=== PATIENT | male | born 1940 | race Caucasian/White ===

== ENCOUNTER 2017-01-30 14:20 | Inpatient (IN) | payer MEDICARE, OTHER ==
[~2017-01-30] VITALS: Ht 182.9 cm; Wt 90.7 kg
[2017-01-30 14:30] VITALS: BP 119/71
--- NOTE | 2017-01-30 14:45 | NUR ---
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 ER MD MADE AWARE OF PT STATUS.
[2017-01-30] MEDS ORDERED: ZAR2.5 PO (14:49)
[2017-01-30] MEDS ORDERED: PUL.5N INH (14:49)
[2017-01-30] MEDS ORDERED: FURO-571 PO (14:49)
[2017-01-30] MEDS ORDERED: SITA50TA3 PO (14:49)
[2017-01-30] MEDS ORDERED: MAGN400S60 PO (14:49)
[2017-01-30] MEDS ORDERED: ALBU0.0912 IH (14:49)
[2017-01-30] MEDS ORDERED: ACET-2619 PO (14:49)
[2017-01-30] MEDS ORDERED: LANTUS SUBQ (14:49)
[2017-01-30] MEDS ORDERED: ISOS10TA9 PO (14:49)
[2017-01-30] MEDS ORDERED: FERR-193 PO (14:49)
[2017-01-30] MEDS ORDERED: DIA250 PO (14:49)
[2017-01-30] MEDS ORDERED: CARV3.12 PO (14:49)
[2017-01-30] MEDS ORDERED: NA P135N19 RC (14:49)
[2017-01-30] MEDS ORDERED: SPIR25TA PO (14:49)
[2017-01-30] MEDS ORDERED: LOV30I SUBQ (14:49)
[2017-01-30] MEDS ORDERED: BISA-213 RC (14:49)
[2017-01-30] MEDS ORDERED: ASPI81EC97 PO (14:49)
[2017-01-30] MEDS ORDERED: DOCU-67 PO (14:49)
[2017-01-30] MEDS ORDERED: MONT10TA35 PO (14:49)
[2017-01-30] MEDS ORDERED: METF500T PO (14:49)
[2017-01-30 15:04] LABS: BASOPHILS # (AUTO) 0.1 K/uL (0.00-0.22); BASOPHILS % (AUTO) 0.7 % (0.0-2.0); EOSINOPHILS # (AUTO) 0.3 K/uL (0-0.4); EOSINOPHILS % (AUTO) 2.8 % (0.0-4.0); HEMATOCRIT 39.8 % (36-52); HEMOGLOBIN 13.2 g/dL (12.0-18.0); LYMPHOCYTES # (AUTO) 0.5 K/uL (2.0-11.5); LYMPHOCYTES % (AUTO) 5.3 % (20.5-51.1); MEAN CORPUSCULAR HEMOGLOBIN 29 pg (27-31); MEAN CORPUSCULAR HGB CONC 33 g/dL (33-37); MEAN CORPUSCULAR VOLUME 88 fL (80-94); MONOCYTES # (AUTO) 1.1 K/uL (0.8-1.0); MONOCYTES % (AUTO) 10.9 % (1.7-9.3); NEUTROPHILS # (AUTO) 8.4 K/uL (1.8-7.7); NEUTROPHILS % (AUTO) 80.3 % (42.2-75.2); PLATELET COUNT (AUTO) 206 K/uL (140-450); RED CELL DISTRIBUTION WIDTH 13.5 % (11.6-13.7); WHITE BLOOD COUNT (AUTO) 10.4 K/uL (4.8-10.8)
[2017-01-30 15:27] LABS: ALANINE AMINOTRANSFERASE 23 U/L (12-78); ALBUMIN 4.1 g/dL (3.4-5.0); ALKALINE PHOSPHATASE 74 U/L (46-116); ANION GAP 14.7 (8-16); ASPARTATE AMINOTRANSFERASE 26 U/L (15-37); CALCIUM 8.5 mg/dL (8.5-10.1); CARBON DIOXIDE 31.8 mmol/L (21-32); CHLORIDE 83 mmol/L (98-107); CREATININE 3.7 mg/dL (0.6-1.3); GLUCOSE 244 mg/dL (74-106); INR 1.1 (0.8-1.2); PARTIAL THROMBOPLASTIN TIME 23.1 secs (22-35.6); PROTHROMBIN TIME 10.6 secs (10.8-13.4); SODIUM SERUM 127 mmol/L (136-145); TOTAL BILIRUBIN 0.5 mg/dL (0.0-1.0); TOTAL PROTEIN, SERUM 8.2 g/dL (6.4-8.2)
--- NOTE | 2017-01-30 15:30 | NUR ---
CRITICAL VALUES RECIEVE FROM LAB K 2.5, BUN 134, CR 3.7 DR SAL NOTIFIED AWAITING ORDERS
[2017-01-30 15:31] LABS: POTASSIUM 2.5 mmol/L (3.5-5.1); UREA NITROGEN, BLOOD 134 mg/dL (7-18)
--- NOTE | 2017-01-30 15:45 | NUR ---
CRITIVAL VALUES RECIEVE FROM LAB TROPONIN 0.192 DR SAL NOTIFIED AWAITING ORDERS
--- NOTE | 2017-01-30 16:30 | NUR ---
DR SAL ASSESSING THE PT AT BEDSIDE
[2017-01-30] MEDS ORDERED: NACL 0.9% 1,000 ML IV SCH (17:08)
[2017-01-30] MEDS ORDERED: ACETAMINOPHEN 325 MG TAB PO PRN (17:10)
[2017-01-30] MEDS ORDERED: HYDROcodone/APAP 5/325 MG 1 TAB TAB PO PRN (17:10)
[2017-01-30] MEDS ORDERED: ONDANSETRON 4 MG/2 ML VIAL IVP PRN (17:10)
--- NOTE | 2017-01-30 17:10 | NUR ---
Patient will be admitted to care of DR VIRAMONTES. Admited to TELE. Will go to room 123A. Belongings list completed. Report to GWYN BILLINGS.
[2017-01-30 17:30] VITALS: BP 134/94
--- NOTE | 2017-01-30 17:30 | NUR ---
RECEIVED REPORT FROM SKIDDER DRIVER. PT TRANSFERRED ONTO UNIT VIA GURNEY. NO S/S OF ACUTE CARDIAC/RESPIRATORY DISTRESS OR DISCOMFORT. PT IN STABLE CONDITION. SAFETY MEASURES IN PLACE, CALL LIGHT WITHIN REACH. WILL INITIATE PLAN OF CARE AND CONTINUE TO MONITOR.
[2017-01-30 17:59] LABS: FREE T4 (FREE THYROXINE) 1.32 ng/dL (0.76-1.46); THYROID STIMULATING HORMONE 2.48 uIU/mL (0.34-3.76)
--- NOTE | 2017-01-30 19:30 | NUR ---
RECEIVED REPORT FROM DAY NURSEMANUELITO. PATIENT RESTING IN BED, WATCHING TELEVISION. NO RESPIRATORY DISTRESS, SOB, OR DISCOMFORT. INITIAL ASSESSMENT AND BODY CHECK DONE. PATIENT IS AOX4, SKIN IS INTACT, IV ACCESS TO RIGHT FOREARM 22G, PATENT. PATIENT HAS HEALED WOUND TO LEFT FOREARM WITH [address] DISCUSSED PLAN OF CARE, MEDICATION REGIMENT, AND PAIN MANAGEMENT WITH PATIENT. PATIENT VERBALIZED UNDERSTANDING. PLACED PATIENT ON SAFETY/FALL PRECAUTIONS. CALL LIGHT LEFT WITHIN REACH, WILL CONTINUE TO MONITOR.
[2017-01-30] MEDS ORDERED: POTASSIUM CHLORIDE 10 MEQ TABER PO SCH (19:35)
[2017-01-30] MEDS ORDERED: ALBUTEROL SULFATE/IPRATROPIU 3 ML SOL IH PRN (19:40)
[2017-01-30] MEDS ORDERED: MAGNESIUM HYDROXIDE 2400 MG/30 ML UDC PO PRN (19:40)
[2017-01-30] MEDS ORDERED: SODIUM PHOSPHATE 118 ML ENEM RC PRN (19:40)
[2017-01-30] MEDS ORDERED: BISACODYL 10 MG SUPP RC PRN (19:40)
[2017-01-30 20:00] VITALS: BP 140/84
[2017-01-30] MEDS: SIMVASTATIN 10 MG TAB PO SCH (20:22)
[2017-01-30] MEDS: DOCUSATE SODIUM 100 MG GELCAP PO SCH (20:22)
--- NOTE | 2017-01-30 20:22 | NUR ---
EXPLAINED TO PATIENT OF MD ORDER INSERTION OF F/C TO CLOSELY MONITOR I&O'S. PATIENT REFUSED, STATES ABILITY TO URINATE FINE. EXPLAINED RISKS/BENEFITS/IMPORTANCE. PATIENT VERBALIZED UNDERSTANDING. STILL REFUSES. NO RESPIRATORY DISTRESS, SOB, OR DISCOMFORT. CALL LIGHT LEFT WITHIN REACH, WILL CONTINUE TO MONITOR.
[2017-01-30] MEDS: CARVEDILOL 3.125 MG TAB PO SCH (20:25)
--- NOTE | 2017-01-30 20:32 | NUR ---
PT REFUSED HHN TX AND SAID NO WAY I WILL TAKE IT. RN ROSY AT BEDSIDE. HHN SETUP AT BEDSIDE. NO SOB/DISTRES NOTED AT THIS TIME.
[2017-01-30] MEDS ORDERED: metFORMIN 500 MG TAB PO SCH (21:00)
--- NOTE | 2017-01-30 22:15 | NUR ---
FIELD TECHNICIAN AT PT BEDSIDE TO FIX LEADS, PT TOOK OFF LEADS, STATED, " THEY BUG ME AND I CAN'T MOVE OR SLEEP WITH IT ON." EXPLAINED TO PT THE IMPORTANCE OF HAVING BENCH ASSEMBLER BATTERY ON, VERBALIZED UNDERSTANDING, AWARE OF RISKS. PT STATED, " YOU CAN PUT IT BACK ON ME IN THE MORNING." PT IS A/O X3, NO CONFUSION NOTED. WILL NOTIFY PATIENT'S NURSE.
--- NOTE | 2017-01-30 22:31 | NUR ---
PATIENT LAYING IN BED, WATCHING TELEVISION. NO RESPIRATORY DISTRESS, SOB, OR DISCOMFORT. CALL LIGHT LEFT WITHIN REACH, WILL CONTINUE TO MONITOR.
[2017-01-30 23:20] LABS: APPEARANCE,URINE CLEAR (CLEAR); BILIRUBIN,URINE NEGATIVE (NEGATIVE); BLOOD, URINE TRACE-I (NEGATIVE); COLOR,URINE YELLOW (YELLOW); LEUKOCYTE ESTERASE ,URINE NEGATIVE (NEGATIVE); NITRITE, URINE NEGATIVE (NEGATIVE); PH,URINE 5.5 (5.0-9.0); PROTEIN,URINE 2+ (NEGATIVE); UGLUCOSE NEGATIVE (NEGATIVE); UROBILINOGEN,URINE 0.2 EU/dL (0.2 - 1)
[2017-01-30 23:53] LABS: BACTERIA,URINE OCCASSIONAL /HPF (None Seen); RBC,URINE 0-5 (RARE) /HPF (0-5); SQUAMOUS EPITHELIAL CELL,UR 0-3 (FEW) /LPF (0-3 (FEW)); WBC,URINE 0-5 (RARE) /HPF (0-5); YEAST,URINE Few /HPF (None Seen)
[2017-01-31] VITALS: BP 101/61
--- NOTE | 2017-01-31 00:47 | NUR ---
PATIENT IN BED, SLEEPING. NO RESPIRATORY DISTRESS, SOB, OR DISCOMFORT. CALL LIGHT LEFT WITHIN REACH, WILL CONTINUE TO MONITOR.
--- NOTE | 2017-01-31 03:15 | NUR ---
PATIENT ASLEEP. NO RESPIRATORY DISTRESS, SOB, OR DISCOMFORT. CALL LIGHT LEFT WITHIN REACH, WILL CONTINUE TO MONITOR.
[2017-01-31 04:00] VITALS: BP 111/52
--- NOTE | 2017-01-31 06:03 | NUR ---
PATIENT SLEEPING. NO RESPIRATORY DISTRESS, SOB, OR DISCOMFORT. CALL LIGHT LEFT WITHIN REACH, WILL CONTINUE TO MONITOR.
--- NOTE | 2017-01-31 07:08 | NUR ---
REPORT GIVEN TO DAY NURSE, MANUELITO. PATIENT RESTING IN BED, WATCHING TELEVISION, STABLE. NO RESPIRATORY DISTRESS, SOB, OR DISCOMFORT. ALL NEEDS ATTENDED TO DURING SHIFT, CALL LIGHT LEFT WITHIN REACH.
--- NOTE | 2017-01-31 07:10 | NUR ---
RECEIVED REPORT FROM HEAD HOST/HOSTESS RN. PT WATCHING TV. PT HAS NO S/S OF ACUTE CARDIAC/RESPIRATORY DISTRESS. SAFETY MEASURES IN PLACE, CALL LIGHT WITHIN REACH. WILL CONTINUE PLAN OF CARE AND CONTINUE TO MONITOR.
[2017-01-31 07:22] LABS: BASOPHILS # (AUTO) 0.1 K/uL (0.00-0.22); BASOPHILS % (AUTO) 0.7 % (0.0-2.0); EOSINOPHILS # (AUTO) 0.5 K/uL (0-0.4); EOSINOPHILS % (AUTO) 4.8 % (0.0-4.0); HEMATOCRIT 39.3 % (36-52); HEMOGLOBIN 13.2 g/dL (12.0-18.0); LYMPHOCYTES # (AUTO) 0.9 K/uL (2.0-11.5); LYMPHOCYTES % (AUTO) 8.4 % (20.5-51.1); MEAN CORPUSCULAR HEMOGLOBIN 29 pg (27-31); MEAN CORPUSCULAR HGB CONC 34 g/dL (33-37); MEAN CORPUSCULAR VOLUME 87 fL (80-94); MONOCYTES % (AUTO) 8.9 % (1.7-9.3); NEUTROPHILS # (AUTO) 8.4 K/uL (1.8-7.7); NEUTROPHILS % (AUTO) 77.2 % (42.2-75.2); PLATELET COUNT (AUTO) 199 K/uL (140-450); RED CELL DISTRIBUTION WIDTH 13.3 % (11.6-13.7); WHITE BLOOD COUNT (AUTO) 10.9 K/uL (4.8-10.8)
[2017-01-31] MEDS ORDERED: DEXTROSE 50% 50 ML SYR IVP PRN ×2 (07:35→12:00)
[2017-01-31 07:37] LABS: ANION GAP 14.9 (8-16); CALCIUM 8.3 mg/dL (8.5-10.1); CARBON DIOXIDE 29.9 mmol/L (21-32); CHLORIDE 87 mmol/L (98-107); CREATININE 3.4 mg/dL (0.6-1.3); GLUCOSE 230 mg/dL (74-106); SODIUM SERUM 129 mmol/L (136-145)
[2017-01-31 07:39] LABS: CHOL/HDL RATIO 5.1 (1-4.5); MAGNESIUM 2.5 mg/dL (1.8-2.4); PHOSPHORUS 5.1 mg/dL (2.5-4.9)
[2017-01-31 08:00] VITALS: BP 92/50
[2017-01-31 08:15] LABS: POTASSIUM 2.8 mmol/L (3.5-5.1); UREA NITROGEN, BLOOD 130 mg/dL (7-18)
[2017-01-31] MEDS: FERROUS SULFATE 325 MG TABEC PO SCH (08:57)
[2017-01-31] MEDS: CARVEDILOL 3.125 MG TAB PO SCH ×2 (08:57→21:31)
[2017-01-31] MEDS: DOCUSATE SODIUM 100 MG GELCAP PO SCH ×2 (08:58→21:31)
[2017-01-31] MEDS: MONTELUKAST SODIUM 10 MG TAB PO SCH (08:58)
[2017-01-31] MEDS ORDERED: FLUCONAZOLE 200 MG/NS PREMIX 100 ML IV SCH (09:00)
[2017-01-31] MEDS: INSULIN DETEMIR 100 UNITS/ML 10 ML VIAL SUBQ SCH (09:34)
--- NOTE | 2017-01-31 10:00 | NUR ---
PT AWAKE, WATCHING TV. PT TOLERATED AM MEDS WELL. NO S/S OF ACUTE DISTRESS OR DISCOMFORT.
--- NOTE | 2017-01-31 11:07 | NUR ---
CM NOTE INITIAL REVIEW FAXED TO [facility] (FAX# [phone]) AND [facility] (FAX# [phone], ATTN: ANDRÉS #[phone] [id number])
[2017-01-31] MEDS ORDERED: BLOOD GLUCOSE MONITORING 1 DEV DEV FS SCH (11:30)
[2017-01-31 12:00] VITALS: BP 130/61
[2017-01-31] MEDS ORDERED: POTASSIUM CHLORIDE 10 MEQ TABER PO SCH (12:00)
[2017-01-31] MEDS: INSULIN LISPRO SLIDING SCALE 100 UNITS/ML VIAL SUBQ PRN ×2 (12:17→21:32)
--- NOTE | 2017-01-31 13:00 | NUR ---
PT BEING SEEN BY DR BARBOUR.
[2017-01-31] MEDS: ALBUTEROL SULFATE/IPRATROPIU 3 ML SOL IH SCH ×2 (13:35→19:06)
[2017-01-31 16:00] VITALS: BP 113/67
[2017-01-31] MEDS: BLOOD GLUCOSE MONITORING 1 DEV DEV FS SCH ×2 (16:34→21:31)
--- NOTE | 2017-01-31 16:40 | NUR ---
PT IS AWAKE, RAZORING HIS FACIAL HAIR. PT HAS NO S/S OF ACUTE DISTRESS OR DISCOMFORT. CALL LIGHT WITHIN REACH, WILL CONTINUE TO MONITOR.
[2017-01-31 17:32] LABS: ANION GAP 11.7 (8-16); CALCIUM 8.5 mg/dL (8.5-10.1); CHLORIDE 90 mmol/L (98-107); CREATININE 3.3 mg/dL (0.6-1.3); GLUCOSE 121 mg/dL (74-106); SODIUM SERUM 130 mmol/L (136-145)
[2017-01-31 17:34] LABS: POTASSIUM 2.7 mmol/L (3.5-5.1); UREA NITROGEN, BLOOD 129 mg/dL (7-18)
[2017-01-31] MEDS ORDERED: NACL 0.9% 1,000 ML IV SCH (17:50)
--- NOTE | 2017-01-31 19:04 | NUR ---
ENDORSED REPORT TO INSPECTOR CLIP ON SUNGLASSES RN. PT HAS NO S/S OF ACUTE DISTRESS OR DISCOMFORT. PT IN STABLE CONDITION.
[2017-01-31] MEDS: BUDESONIDE 0.5 MG/2 ML NEBU INH SCH (19:05)
--- NOTE | 2017-01-31 19:05 | NUR ---
RECEIVED REPORT FROM DAY NURSEMANUELITO. PATIENT RESTING IN BED, WATCHING TELEVISION. NO RESPIRATORY DISTRESS, SOB, OR DISCOMFORT. INITIAL ASSESSMENT AND BODY CHECK DONE. PATIENT IS AOX4, IV ACCESS TO RIGHT FOREARM 22G, PATENT. SKIN IS INTACT, HEALED WOUND TO LEFT FOREARM, STITCHES IN PLACE. DISCUSSED PLAN OF CARE, MEDICATION REGIMENT, AND PAIN MANAGEMENT WITH PATIENT. PATIENT VERBALIZED UNDERSTANDING. PLACED PATIENT ON SAFETY/FALL PRECAUTIONS. CALL LIGHT LEFT WITHIN REACH, WILL CONTINUE TO MONITOR.
[2017-01-31 20:00] VITALS: BP 117/68
[2017-01-31] MEDS: SIMVASTATIN 10 MG TAB PO SCH (21:31)
--- NOTE | 2017-01-31 22:11 | NUR ---
PATIENT IN BED, SLEEPING. NO RESPIRATORY DISTRESS, SOB, OR DISCOMFORT. CALL LIGHT LEFT WITHIN REACH, WILL CONTINUE TO MONITOR.
[2017-02-01] VITALS: BP 109/57
[2017-02-01] MEDS: ALBUTEROL SULFATE/IPRATROPIU 3 ML SOL IH SCH ×4 (00:34→19:13)
--- NOTE | 2017-02-01 00:48 | NUR ---
PATIENT ASLEEP. NO RESPIRATORY DISTRESS, SOB, OR DISCOMFORT. CALL LIGHT LEFT WITHIN REACH, WILL CONTINUE TO MONITOR.
--- NOTE | 2017-02-01 03:31 | NUR ---
PATIENT SLEEPING. NO RESPIRATORY DISTRESS, SOB, OR DISCOMFORT. CALL LIGHT LEFT WITHIN REACH, WILL CONTINUE TO MONITOR.
[2017-02-01 04:00] VITALS: BP 115/63
--- NOTE | 2017-02-01 06:00 | NUR ---
PATIENT IN BED, ASLEEP. NO RESPIRATORY DISTRESS, SOB, OR DISCOMFORT. CALL LIGHT LEFT WITHIN REACH, WILL CONTINUE TO MONITOR.
[2017-02-01] MEDS: BLOOD GLUCOSE MONITORING 1 DEV DEV FS SCH ×4 (06:29→21:18)
[2017-02-01] MEDS: INSULIN LISPRO SLIDING SCALE 100 UNITS/ML VIAL SUBQ PRN ×4 (06:31→21:19)
[2017-02-01 06:44] LABS: BASOPHILS # (AUTO) 0.1 K/uL (0.00-0.22); BASOPHILS % (AUTO) 0.6 % (0.0-2.0); EOSINOPHILS # (AUTO) 0.4 K/uL (0-0.4); EOSINOPHILS % (AUTO) 4.2 % (0.0-4.0); HEMATOCRIT 39.3 % (36-52); HEMOGLOBIN 13.2 g/dL (12.0-18.0); LYMPHOCYTES % (AUTO) 9.5 % (20.5-51.1); MEAN CORPUSCULAR HEMOGLOBIN 30 pg (27-31); MEAN CORPUSCULAR HGB CONC 34 g/dL (33-37); MEAN CORPUSCULAR VOLUME 88 fL (80-94); MONOCYTES # (AUTO) 0.9 K/uL (0.8-1.0); MONOCYTES % (AUTO) 8.6 % (1.7-9.3); NEUTROPHILS # (AUTO) 7.8 K/uL (1.8-7.7); NEUTROPHILS % (AUTO) 77.1 % (42.2-75.2); PLATELET COUNT (AUTO) 188 K/uL (140-450); RED BLOOD CELL COUNT(AUTO) 4.45 MIL/uL (4.20-6.10); RED CELL DISTRIBUTION WIDTH 13.3 % (11.6-13.7); WHITE BLOOD COUNT (AUTO) 10.2 K/uL (4.8-10.8)
[2017-02-01 06:52] LABS: ANION GAP 14.2 (8-16); CALCIUM 8.7 mg/dL (8.5-10.1); CARBON DIOXIDE 29.8 mmol/L (21-32); CHLORIDE 89 mmol/L (98-107); CREATININE 3.2 mg/dL (0.6-1.3); GLUCOSE 189 mg/dL (74-106); SODIUM SERUM 130 mmol/L (136-145)
[2017-02-01 06:53] LABS: MAGNESIUM 2.4 mg/dL (1.8-2.4); PHOSPHORUS 4.7 mg/dL (2.5-4.9)
--- NOTE | 2017-02-01 07:07 | NUR ---
REPORT GIVEN TO DAY NURSE, HAO ([facility]). PATIENT RESTING IN BED, STABLE. NO RESPIRATORY DISTRESS, SOB, OR DISCOMFORT. ALL NEEDS ATTENDED TO DURING SHIFT, CALL LIGHT LEFT WITHIN REACH.
--- NOTE | 2017-02-01 07:09 | NUR ---
RECEIVED REPORT FROM GWYN GALLEGOS. PT IS A/OX4, IV RT FA PATENT AND INTACT, INFUSING WELL, SKIN IS INTACT, LT FA SURGICAL SCAR, PT IS HARD OF HEARING BOTH EARS, NO S/S OF RESPIRATORY DISTRESS OR DISCOMFORT NOTED, SAFETY/FALL PRECAUTIONS IN PLACE, DISCUSSED PLAN OF CARE WITH PT, PT VERBALIZED UNDERSTANDING, ALL NEEDS ARE MET AT THIS TIME, CALL LIGHT WITHIN REACH. WILL CONTINUE TO MONITOR.
[2017-02-01 07:15] LABS: UREA NITROGEN, BLOOD 130 mg/dL (7-18)
[2017-02-01] MEDS: BUDESONIDE 0.5 MG/2 ML NEBU INH SCH ×2 (07:35→19:13)
[2017-02-01 08:00] VITALS: BP 118/69
[2017-02-01] MEDS ORDERED: POTASSIUM CHLORIDE 10 MEQ TABER PO SCH ×2 (08:30→12:40)
--- NOTE | 2017-02-01 09:10 | NUR ---
TRANSFERRED PT FROM 123A TO 112B.
[2017-02-01] MEDS: DOCUSATE SODIUM 100 MG GELCAP PO SCH ×2 (09:37→21:17)
[2017-02-01] MEDS: ASPIRIN 81 MG TAB.CHEW PO SCH (09:37)
[2017-02-01] MEDS: CARVEDILOL 3.125 MG TAB PO SCH ×2 (09:37→21:17)
[2017-02-01] MEDS: FERROUS SULFATE 325 MG TABEC PO SCH (09:37)
--- NOTE | 2017-02-01 09:37 | NUR ---
DUE MEDICATIONS GIVEN. PT TOLERATED WELL, CALL LIGHT WITHIN REACH, WILL CONTINUE TO MONITOR.
[2017-02-01] MEDS: MONTELUKAST SODIUM 10 MG TAB PO SCH (09:38)
[2017-02-01] MEDS: INSULIN DETEMIR 100 UNITS/ML 10 ML VIAL SUBQ SCH (09:51)
[2017-02-01] MEDS: FLUCONAZOLE 100 MG/NS PREMIX 50 ML IV SCH (09:57)
[2017-02-01] MEDS ORDERED: POTASSIUM CHLORIDE 40 MEQ, LIDOCAINE 1% 25 MG in NACL 0.9% 250 ML IV SCH (10:00)
[2017-02-01] MEDS ORDERED: LORazepam 2 MG/ML VIAL IM/IVP SCH (11:11)
--- NOTE | 2017-02-01 11:14 | NUR ---
PT SITTING IN BED, WATCHING TV. CALL LIGHT WITHIN REACH, WILL CONTINUE TO MONITOR.
[2017-02-01 12:00] VITALS: BP 114/68
[2017-02-01] MEDS: NACL 0.9% 1,000 ML IV SCH (12:30)
--- NOTE | 2017-02-01 13:08 | NUR ---
SCREEN PRINTING INSPECTOR IS AT BEDSIDE WITH PT.
--- NOTE | 2017-02-01 13:23 | NUR ---
CM NOTE CONCURRENT REVIEW FAXED TO [facility] (FAX# [phone]) AND [facility] (FAX# [phone], ATTN: ANDRÉS #[phone] [id number])
--- NOTE | 2017-02-01 13:43 | NUR ---
PT IS CURRENTLY NOT IN ROOM. PT IN CT SCAN. HHN NOT GIVEN. RN RAFIQ AWARE. WILL CONTINUE TO MONITOR.
--- NOTE | 2017-02-01 15:10 | NUR ---
PHYSICAL THERAPY IS CURRENTLY AT BEDSIDE WITH PT.
[2017-02-01 16:00] VITALS: BP 111/56
--- NOTE | 2017-02-01 17:02 | NUR ---
PT SITTING IN BED WATCHING TV. NO S/S OF RESPIRATORY DISTRESS OR DISCOMFORT NOTED. CALL LIGHT WITHIN REACH, WILL CONTINUE TO MONITOR.
--- NOTE | 2017-02-01 19:20 | NUR ---
ENDORSED PT TO GWYN LYNCH. FOR CONTINUITY OF CARE. PT IS STABLE AT THIS TIME.
--- NOTE | 2017-02-01 19:21 | NUR ---
ENDORSED TO NEWS CORRESPONDENT GWYN LYNCH TO TAKE A PICTURE OF THE PT RIGHT HEEL WOUND.
--- NOTE | 2017-02-01 19:30 | NUR ---
RECEIVED REPORT FROM DAWIT PASCAL AT BEDSIDE. PT IS ALERT AWAKE ORIENTED X4. INITIAL ASSESSMENT DONE. NO S/S OF RESPIRATORY DISTRESS OR SOB NOTED. NO C/O PAIN OR ANY DISCOMFORT AT THIS TIME. PLAN OF CARE REVIEWED TO PT AND VERBALIZED UNDERSTANDING. CALL LIGHT WITHIN REACH. WILL CONTINUE TO MONITOR.
[2017-02-01 20:00] VITALS: BP 126/70
--- NOTE | 2017-02-01 20:00 | NUR ---
NOTED PRESSURE ULCER ON THE RIGHT HEEL. PICTURE IS TAKEN. CHARGE NURSE JANES NOTIFIED. DR. JONES NOTIFIED. WILL CONTINUE TO MONITOR.
--- NOTE | 2017-02-01 20:40 | NUR ---
PT TOOK SHOWER WITH ASSISTANCE OF TWO NEW BUSINESS CLERK'S AND TOLERATED WELL. PT DID NOT WANT TO TAKE OFF HIS WRISTWATCH BECAUSE HE SAID IT'S WATERPROOF. KEPT CLEAN AND DRY. WILL CONTINUE TO MONITOR.
[2017-02-01] MEDS: SIMVASTATIN 10 MG TAB PO SCH (21:18)
[2017-02-01] MEDS ORDERED: RIVAROXABAN 15 MG TAB PO SCH (22:45)
[2017-02-02] VITALS: BP 129/73
--- NOTE | 2017-02-02 00:20 | NUR ---
PT IS SLEEPING RIGHT NOW BUT EASILY AROUSABLE. NO S/S OF ANY DISCOMFORT AT THIS TIME. ALL NEEDS ARE ATTENDED. CALL LIGHT WITHIN REACH. WILL CONTINUE TO MONITOR.
[2017-02-02] MEDS: ALBUTEROL SULFATE/IPRATROPIU 3 ML SOL IH SCH ×4 (01:00→19:39)
--- NOTE | 2017-02-02 01:40 | NUR ---
HHN TX NOT GIVEN, PT IS ASLEEP, REQUESTED TO BE LEFT ALONE TO REST, NO RESP DISTRESS OR SOB NOTED, WILL RESUME AT NEXT SCHEDULED TX.
[2017-02-02] MEDS: NACL 0.9% 1,000 ML IV SCH (01:55)
[2017-02-02] MEDS ORDERED: LORazepam 2 MG/ML VIAL IVP PRN (03:10)
--- NOTE | 2017-02-02 03:15 | NUR ---
CALLED DR. GOMEZ AND NOTIFIED THAT PT IS VERY AGITATED TRYING TO PULL OUT IV LINES AND HEART MONITOR AND TRYING TO GET OUT FROM THE BED AND NEW ORDERS WERE GIVEN (PLS. SEE CPOE). NEW ORDERS NOTED AND CARRIED OUT. WILL CONTINUE TO MONITOR.
[2017-02-02] MEDS ORDERED: LORazepam 2 MG/ML VIAL ONE (03:17)
--- NOTE | 2017-02-02 03:50 | NUR ---
PT IS ASLEEP RIGHT NOW BUT EASILY AROUSABLE. NO S/S OF ANY DISCOMFORT AT THIS TIME. ALL NEEDS ARE ATTENDED. CALL LIGHT WITHIN REACH. WILL CONTINUE TO MONITOR.
[2017-02-02 04:00] VITALS: BP 118/69
--- NOTE | 2017-02-02 05:30 | NUR ---
AM CARE RENDERED. BED LINEN CHANGED. INSTRUCTED PT TO REPOSITION. KEPT CLEAN AND DRY. CALL LIGHT WITHIN REACH. WILL CONTINUE TO MONITOR.
[2017-02-02] MEDS: BLOOD GLUCOSE MONITORING 1 DEV DEV FS SCH ×4 (06:34→21:25)
[2017-02-02] MEDS: INSULIN LISPRO SLIDING SCALE 100 UNITS/ML VIAL SUBQ PRN ×4 (06:36→21:28)
[2017-02-02 07:01] LABS: HEMOGLOBIN 12.1 g/dL (12.0-18.0); MEAN CORPUSCULAR HEMOGLOBIN 30 pg (27-31); MEAN CORPUSCULAR HGB CONC 34 g/dL (33-37); MEAN CORPUSCULAR VOLUME 88 fL (80-94); PLATELET COUNT (AUTO) 173 K/uL (140-450); RED CELL DISTRIBUTION WIDTH 13.5 % (11.6-13.7); WHITE BLOOD COUNT (AUTO) 10.8 K/uL (4.8-10.8)
[2017-02-02 07:02] LABS: BASOPHILS # (AUTO) 0.1 K/uL (0.00-0.22); BASOPHILS % (AUTO) 0.6 % (0.0-2.0); EOSINOPHILS # (AUTO) 0.6 K/uL (0-0.4); EOSINOPHILS % (AUTO) 5.8 % (0.0-4.0); LYMPHOCYTES # (AUTO) 1.1 K/uL (2.0-11.5); LYMPHOCYTES % (AUTO) 10.3 % (20.5-51.1); NEUTROPHILS % (AUTO) 74.3 % (42.2-75.2)
[2017-02-02 07:10] LABS: ANION GAP 13.8 (8-16); CALCIUM 8.2 mg/dL (8.5-10.1); CARBON DIOXIDE 27.3 mmol/L (21-32); CHLORIDE 94 mmol/L (98-107); GLUCOSE 160 mg/dL (74-106); POTASSIUM 3.1 mmol/L (3.5-5.1); SODIUM SERUM 132 mmol/L (136-145)
--- NOTE | 2017-02-02 07:10 | NUR ---
PT HAS NO S/S OF ANY DISCOMFORT. PLAN OF CARE ENDORSED TO AIDA PASCAL AT BEDSIDE FOR CONTINUITY OF CARE. Addendum: 02/02/17 at 0715 by Luke Montoya RN ENDORSED TO DAWIT
[2017-02-02 07:11] LABS: MAGNESIUM 2.4 mg/dL (1.8-2.4); PHOSPHORUS 4.5 mg/dL (2.5-4.9)
[2017-02-02 07:14] LABS: UREA NITROGEN, BLOOD 125 mg/dL (7-18)
--- NOTE | 2017-02-02 07:15 | NUR ---
RECEIVED REPORT FROM GWYN LYNCH. PT IS SLEEPING IN BED, PT IS DROWSY, AWAKEN WITH STERNAL RUB, IV ON RT FA, PATENT, INTACT, INFUSING WELL, WOUND ON RIGHT HEEL, OFFSHORING MANAGER, PT IS ON O2 2L NC, NO S/S OF RESPIRATORY DISTRESS OR DISCOMFORT NOTED, SAFETY/FALL PRECAUTIONS IN PLACE, CALL LIGHT WITHIN REACH, WILL CONTINUE, TO MONITOR.
[2017-02-02] MEDS: BUDESONIDE 0.5 MG/2 ML NEBU INH SCH ×2 (07:26→19:39)
--- NOTE | 2017-02-02 07:59 | NUR ---
DR. ANTONIO IN TO SEE THE PT. WILL FOLLOW UP ON ORDERS.
[2017-02-02 08:00] VITALS: BP 102/54
[2017-02-02] MEDS ORDERED: RIVAROXABAN 10 MG TAB PO SCH (08:00)
[2017-02-02] MEDS: ASPIRIN 81 MG TAB.CHEW PO SCH (09:00)
[2017-02-02] MEDS: MONTELUKAST SODIUM 10 MG TAB PO SCH (09:00)
[2017-02-02] MEDS: FERROUS SULFATE 325 MG TABEC PO SCH (09:00)
[2017-02-02] MEDS: CARVEDILOL 3.125 MG TAB PO SCH ×2 (09:00→20:36)
[2017-02-02] MEDS: INSULIN DETEMIR 100 UNITS/ML 10 ML VIAL SUBQ SCH (09:00)
[2017-02-02] MEDS: DOCUSATE SODIUM 100 MG GELCAP PO SCH ×2 (09:00→20:36)
--- NOTE | 2017-02-02 09:05 | NUR ---
WOUND CARE EVALUATION NOTES: REASONS FOR EVALUATION: RIGHT HEEL WOUND COMPLETE SKIN ASSESSMENT DONE ON THIS 76 Y/O MALE PATIENT FROM ON LICENSE OF [facility] TO [facility], WITH INITIAL DIAGNOSIS OF ACUTE RENAL FAILURE AND ELEVATED TROPONIN. PAST MEDICAL HISTORY INCLUDE CHF, DM, ASTHMA AND TX. ALL ABOVE INFORMATION WAS OBTAINED FROM THE ADMISSION H&P. LABS ARE WBC 10.8, H/H 12.1/36.0, GLUCOSE 160, ALBUMIN 4.0, PT/INR 10.6/1.1 AND PTT 23.1. CURRENT MEDS INCLUDE RIVAROXABAN, ATIVAN, ASPIRIN, FLUCONAZOLE, INSULIN AND NORCO. PATIENT IS SLEEPING AT THIS TIME. SKIN WARM TO TOUCH, NO EDEMA, WITH HAIR GROWTH, TOENAILS ARE SLIGHTLY THICKENED AND +2 BILATERAL PEDAL PULSES. URINE AND BOWEL CONTINENT, ABLE TO MAKE HIS NEEDS KNOWN. ABLE TO TURN SELF WITH MINIMAL ASSISTANCE. INITIAL PLAN OF CARE AND PRESSURE PREVENTIVE MEASURES DISCUSSED, UNABLE TO VERBALIZE UNDERSTANDING. WILL REINFORCE TEACHING. INTEGUMENTARY: RIGHT ACHILLES/HEEL - ST II - 100% PALE RED. GENERALIZED RASH - DRY AND FLAKY RECOMMENDATIONS: -CLEANSE SKIN WITH MILD SOAP AND WATER, PAT DRY, APPLY VIT A&D OINT BIDWC AND LEAVE OPEN TO AIR -PAINT RIGHT HEEL WITH SKIN PREP WIPES BIDWC AND LEAVE OPEN TO AIR --TURN AND REPOSITION PATIENT Q2H -ASSESS AND MONITOR SKIN CONDITION DURING POSITION CHANGE, PLEASE PAY PARTICULAR ATTENTION TO SACRALCOCCYX, ELBOWS AND HEELS -OFFLOAD BILATERAL HEELS BY PLACING PILLOWS UNDER CALVES AT ALL TIMES, UNLESS OTHERWISE CONTRAINDICATED -KEEP SKIN CLEAN AND DRY AT ALL TIMES. RECOMMENDATIONS DISCUSSED WITH PRIMARY RN AND RESIDENT PHYSICIAN, DR. MCGINNIS. WILL FOLLOW UP PATIENT Q 7 DAYS AND PRN. PLEASE CONTACT [facility] FOR ANY CONCERNS, QUESTIONS AND CHANGES IN SKIN CONDITION.
[2017-02-02] MEDS: FLUCONAZOLE 100 MG/NS PREMIX 50 ML IV SCH (09:06)
--- NOTE | 2017-02-02 09:25 | NUR ---
WOUND CARE NURSE AT BEDSIDE EVALUATING PT.
--- NOTE | 2017-02-02 09:26 | NUR ---
DUE PIGGYBACK GIVEN. BLOOD SUGAR CHECKED 173, LEVEMIR HELD, PT IS ASLEEP AT THIS TIME. CALL LIGHT WITHIN REACH. WILL CONTINUE TO MONITOR.
--- NOTE | 2017-02-02 10:58 | NUR ---
Social Service Note: I faxed patient's clinical information to [facility] .
--- NOTE | 2017-02-02 11:44 | NUR ---
Social Service Note: Per [place] from [facility] , patient may return to 41A upon discharge, I informed Route Returner Sushma of this.
[2017-02-02 12:00] VITALS: BP 114/70
--- NOTE | 2017-02-02 12:21 | NUR ---
FAXED CONCURRENT REVIEW TO [facility] [phone] PHONE [facility] [phone] FAXED CONCURRENT REVIEW TO [facility] [phone] PHONE [phone] [place]
--- NOTE | 2017-02-02 12:35 | NUR ---
FAXED CONCURRENT REVIEW TO [facility] [phone] [phone] FAXED CONCURRENT REVIEW TO [facility] [phone] PHONE [facility] [phone] [id number]
--- NOTE | 2017-02-02 12:50 | NUR ---
PHYSICAL THERAPY WORKING ON PT. PT USING WALKER, NO S/S OF RESPIRATORY DISTRESS OR DISCOMFORT NOTED, WILL CONTINUE TO MONITOR.
--- NOTE | 2017-02-02 13:30 | NUR ---
PT SITTING UP IN BED EATING LUNCH. CALL LIGHT WITHIN REACH, WILL CONTINUE TO MONITOR.
[2017-02-02] MEDS ORDERED: POTASSIUM CHLORIDE 10 MEQ TABER PO SCH (15:00)
--- NOTE | 2017-02-02 15:02 | NUR ---
CALLED [facility] AND SPOKE WITH MEREDITH, [id number]. IF PATIENT GOES BACK TO [facility] OVER THE WEEKEND, THE AUTH FOR [facility] IS [id number]. THE AUTH FOR TRANSPORT IS [id number]. EL MARKS.
--- NOTE | 2017-02-02 15:23 | NUR ---
PT IS RESTING ON BED WATCHING TV, FUSING MACHINE OPERATOR AT BEDSIDE TALKING TO PT. CALL LIGHT WITHIN REACH, WILL CONTINUE TO MONITOR.
[2017-02-02 16:00] VITALS: BP 109/51
[2017-02-02] MEDS ORDERED: POTASSIUM CHLORIDE 20 MEQ, LIDOCAINE 1% 25 MG in NACL 0.9% 250 ML IV SCH (17:00)
--- NOTE | 2017-02-02 17:53 | NUR ---
PT IS SLEEPING AT THIS TIME, NO S/S OF RESPIRATORY DISTRESS OR DISCOMFORT NOTED, CALL LIGHT WITHIN REACH, WILL CONTINUE TO MONITOR.
[2017-02-02] MEDS: RIVAROXABAN 15 MG TAB PO SCH (18:00)
--- NOTE | 2017-02-02 19:15 | NUR ---
ENDORSED PT TO GWYN OTT. FOR CONTINUITY OF CARE. PT STABLE AT THIS TIME.
--- NOTE | 2017-02-02 19:21 | NUR ---
RECEIVED PT REPORT FROM EARL PASCAL FOR PT CONTINUITY OF CARE AT PT BEDSIDE. PT NOTED STABLE, SLEEPING AT THIS TIME. CALL LIGHT WITHIN REACH.
--- NOTE | 2017-02-02 19:39 | NUR ---
AWAKE CONFUSED PATIENT REMOVED ID BAND TRU/RN NOTIFIED
--- NOTE | 2017-02-02 19:40 | NUR ---
PT NOTED SITTING IN BED, RECEIVING BREATHING TREATMENT AT THIS TIME. NO ACUTE RESPIRATORY DISTRESS NOTED.
--- NOTE | 2017-02-02 19:49 | NUR ---
SHIFT ASSESSMENT DONE AT THIS TIME. PT IS A/O X1 NOTED TO BE DROWSY AND MUMBLING. ABLE TO FOLLOW COMMANDS AND VERBALIZE NEEDS. NO ACUTE RESPIRATORY DISTRESS NOTED. VITAL SIGNS TAKEN AND ARE STABLE, PT ON ROOM AIR WITH OXYGEN SATURATION AT 100%. DENIES PAIN. NO SOB OR ACUTE RESPIRATORY DISTRESS NOTED. IV ACCESS TO RT FOREARM #22G, PATENT AND INTACT. UPON INSPECTION NOTED PT TO HAVE HEEL WOUND, DRY AND INTACT. SEE WOUND ASSESSMENT. NOTED HEELING SCAR ON LEFT FOREARM, SUTURES HEELING, DRY AND INTACT. PT ALSO HAS MULTIPLE SCABS ALLOVER TRUCK AND UPPER AND LOWER EXTREMITIES OF BODY, DRY AND HEALED. NO SWELLING NOTED. LUNG SOUNDS ARE DIMINISHED. BOWEL SOUNDS ARE ACTIVE. DISCUSSED WITH PT PLAN OF CARE, VERBALIZED UNDERSTANDING. CALL LIGHT PLACED WITHIN EASY REACH. WILL CONTINUE TO MONITOR PT.
[2017-02-02 20:00] VITALS: BP 118/73
[2017-02-02] MEDS: SIMVASTATIN 10 MG TAB PO SCH (20:36)
--- NOTE | 2017-02-02 20:37 | NUR ---
PROVIDED PT ATIVAN AT THIS TIME, PT REALLY AGITATED AND REMOVING LEADS. WILL CONTINUE TO MONITOR PT.
--- NOTE | 2017-02-02 21:25 | NUR ---
PT BLOOD GLUCOSE IS 175, PROVIDED INULIN COVERAGE PER MD ORDERS. ALSO PROVIDED PO SCHEDULED MEDICATIONS PER MD ORDERS, PT TOLERATE WELL. NO DISTRESS. CALL LIGHT WITHIN REACH.
--- NOTE | 2017-02-02 22:09 | NUR ---
PT HAS ORDER TO COLLECT FOR SCABIES, PER PROTOCOL USUALLY IS COLLECTED BY INFECTIOUS DR., DR. LUNA ON UNIT, REFUSED TO COLLECT AT THIS TIME DUE TO PATIENT IS NOT ON HIS LIST FOR CONSULTATION. Kizzy GODOY. CALLED AND AWARE OF FOR CONSULTATION. NO NEW ORDER RECEIVED. ASHA STATED SCABIES TO BE COLLECTED IN AM BY RESIDENTS. ALSO INFORMED OF PT KEEPS ON REMOVING TELEMETRY LEADS. NO NEW ORDERS RECEIVED. PT KEEPS REFUSING TELE MONITOR, AWARE OF RISKS, VERBALIZED UNDERSTANDING.
--- NOTE | 2017-02-02 22:10 | NUR ---
PT FOUND TRYING TO GET OUT OF BED AND REMOVED LEADS FOR SECOND TIME. INFORMED PT TO NOT REMOVE LEADS AND STAY IN BED. PT TRANSFERRED TO ROOM 124B CLOSE TO NURSE STATION WITH BED ALARM. WILL CONTINUE TO MONITOR PT. PT IS ON CONTACT ISOLATION.
[2017-02-03] VITALS: BP 110/46
--- NOTE | 2017-02-03 00:05 | NUR ---
PT VITAL SIGNS AT THIS TIME ARE STABLE, PT IS NOW CALM AND SLEEPING. NO S/S OF ACUTE DISTRESS, OXYGEN SATURATION IS 99% ON ROOM AIR.
[2017-02-03] MEDS: ALBUTEROL SULFATE/IPRATROPIU 3 ML SOL IH SCH ×4 (01:37→20:07)
--- NOTE | 2017-02-03 02:25 | NUR ---
PT NOTED SLEEPING WELL, NO ACUTE DISTRESS NOTED. IV ACCESS STILL INTACT. CALL LIGHT WITHIN REACH.
[2017-02-03 04:00] VITALS: BP 115/63
--- NOTE | 2017-02-03 05:40 | NUR ---
PT REFUSING LAB DRAW AT THIS TIME.
[2017-02-03] MEDS: INSULIN LISPRO SLIDING SCALE 100 UNITS/ML VIAL SUBQ PRN ×2 (06:07→12:09)
[2017-02-03] MEDS: PERMETHRIN 5% 60 GM TUBE TP SCH ×2 (06:31→12:03)
[2017-02-03] MEDS: BLOOD GLUCOSE MONITORING 1 DEV DEV FS SCH ×3 (06:31→16:43)
--- NOTE | 2017-02-03 06:31 | NUR ---
PROVIDED PT WITH INSULIN PER SLIDING SCALE. SEE eMAR. PT STABLE.
[2017-02-03 06:41] LABS: BILIRUBIN,URINE NEGATIVE (NEGATIVE); BLOOD, URINE TRACE-L (NEGATIVE); LEUKOCYTE ESTERASE ,URINE NEGATIVE (NEGATIVE); NITRITE, URINE NEGATIVE (NEGATIVE); PH,URINE 5.5 (5.0-9.0); PROTEIN,URINE 1+ (NEGATIVE); UGLUCOSE NEGATIVE (NEGATIVE); UROBILINOGEN,URINE 0.2 EU/dL (0.2 - 1)
[2017-02-03 06:47] LABS: APPEARANCE,URINE SLIGHTLY HAZY (CLEAR); COLOR,URINE YELLOW (YELLOW)
--- NOTE | 2017-02-03 07:29 | NUR ---
ENDORSED PT TO ERNIE-LITIGATION ASSISTANT AT PT BEDSIDE FOR CONTINUITY OF CARE. PT NOTED STABLE, NO ACUTE DISTRESS NOTED.
[2017-02-03] MEDS: BUDESONIDE 0.5 MG/2 ML NEBU INH SCH ×2 (07:30→20:07)
--- NOTE | 2017-02-03 07:30 | NUR ---
RECEIVED PT AAOX2, CONFUSED AND UNCOOPERATIVE TO CARE. PT TRYING TO GET OOB AND NOTED TO HAVE UNSTEADY GAIT AND REQUIRED ASSISTS BACK TO BED. SHIFT ASSESSMENT DONE AND CHARTED. NO C/O PAIN OR DISCOMFORT BY PT AND PT WAS IN NO DISTRESS. PT MORE SETTLED AFTER. WILL CONTINUE TO MONITOR PT.
[2017-02-03 07:39] LABS: RBC,URINE 0-5 (RARE) /HPF (0-5); SQUAMOUS EPITHELIAL CELL,UR 0-3 (FEW) /LPF (0-3 (FEW)); WBC,URINE 0-5 (RARE) /HPF (0-5)
[2017-02-03 07:40] LABS: BACTERIA,URINE OCCASSIONAL /HPF (None Seen)
--- NOTE | 2017-02-03 07:51 | NUR ---
PT REFUSED BREATHING TX AT THIS TIME. PT IS NOT SOB AND NOT IN RESPIRATORY DISTRESS. B.S CLEAR BILATERALLY.
[2017-02-03 08:00] VITALS: BP 96/65
[2017-02-03] MEDS: INSULIN DETEMIR 100 UNITS/ML 10 ML VIAL SUBQ SCH (09:00)
--- NOTE | 2017-02-03 09:00 | NUR ---
PT TOOK DIET AND FLUIDS WELL. PT CONTINUE TO TRY TO GET OUT OF BED AND REQUIRED FREQUENT CHECKING AND ASSISTANCE. PT ABLE TO TAKE MOST OF HIS MEDS BUT TOOK A LONG TIME TIME TO TAKE THEM. PT CONFUSED AND UNCOOPERATIVE AT TIMES. WILL CONTINUE TO CHECK ON PT.
[2017-02-03] MEDS: DOCUSATE SODIUM 100 MG GELCAP PO SCH (09:42)
[2017-02-03] MEDS: ASPIRIN 81 MG TAB.CHEW PO SCH (09:43)
[2017-02-03] MEDS: FERROUS SULFATE 325 MG TABEC PO SCH (09:43)
[2017-02-03] MEDS: MONTELUKAST SODIUM 10 MG TAB PO SCH (09:49)
[2017-02-03] MEDS: FLUCONAZOLE 100 MG/NS PREMIX 50 ML IV SCH (09:59)
[2017-02-03 11:00] LABS: MAGNESIUM 2.3 mg/dL (1.8-2.4)
[2017-02-03 11:03] LABS: ANION GAP 14.8 (8-16); CALCIUM 8.4 mg/dL (8.5-10.1); CARBON DIOXIDE 26.6 mmol/L (21-32); CHLORIDE 95 mmol/L (98-107); CREATININE 2.9 mg/dL (0.6-1.3); GLUCOSE 245 mg/dL (74-106); POTASSIUM 3.4 mmol/L (3.5-5.1); SODIUM SERUM 133 mmol/L (136-145)
[2017-02-03 11:04] LABS: UREA NITROGEN, BLOOD 112 mg/dL (7-18)
--- NOTE | 2017-02-03 11:30 | NUR ---
PT TRANSFERRED TO BED A BRAKE ON BED B NOTED TO BE UNRELIABLE AND PT GETTING OUT OF BED MOST OF THE TIME. PT MORE COOPERATIVE AT THIS TIME.
[2017-02-03] MEDS: CARVEDILOL 3.125 MG TAB PO SCH (12:04)
[2017-02-03] MEDS ORDERED: POTASSIUM CHLORIDE 10 MEQ TABER PO SCH (14:15)
[2017-02-03 14:43] VITALS: BP 120/65
[2017-02-03] MEDS ORDERED: RIVA15TA1 PO (15:11)
--- NOTE | 2017-02-03 15:12 | NUR ---
DR. MCCULLOUGH WAS IN TO SEE PT AND MD LEFT ORDER FOR PT'S DISCHARGE. PT NOTIFIED OF SAME.
[2017-02-03] MEDS ORDERED: FURO-570 PO (15:23)
[2017-02-03 15:46] LABS: URINE SODIUM, RANDOM 42 mmol/l (40-220)
--- NOTE | 2017-02-03 16:25 | NUR ---
KCL 20 MEQ PO GIVEN PER MD'S ORDER FOR K+ 3.4.
[2017-02-03] MEDS: RIVAROXABAN 15 MG TAB PO SCH (18:11)
--- NOTE | 2017-02-03 18:55 | NUR ---
PT'S DAUGHTER MADELEINE NOTIFIED OF PT'S TRANFER BACK TO SNF BY PHONE.
--- NOTE | 2017-02-03 19:10 | NUR ---
REPORT GIVEN MARTÍN BOSCH SUPERVISOR OF [facility] BY PHONE.
--- NOTE | 2017-02-03 19:10 | NUR ---
RECEIVED PT REPORT FROM ERNIE PASCAL FOR PT CONTINUITY OF CARE AT PT BEDSIDE. PT NOTED STABLE, SLEEPING AT THIS TIME. CALL LIGHT WITHIN REACH.
--- NOTE | 2017-02-03 19:12 | NUR ---
REPORT GIVEN TO TRU PASCAL. PT LYING IN BED WITH HIS EYES CLOSED AND WAS IN NO DISCOMFORT/ DISTRESS.
--- NOTE | 2017-02-03 19:19 | NUR ---
PT DISCHARGE INSTRUCTIONS GIVEN AT THIS TIME, PT REFUSING TO SIGN PAPERWORK INSTRUCTION, DID VERBALIZE UNDERSTANDING OF TEACH. PT WILL BE GOING TO [facility] WITH IV ACCESS, IS PATENT AND INTACT. NO ACUTE DISTRESS NOTED AT THIS TIME.
--- NOTE | 2017-02-03 19:35 | NUR ---
SHIFT ASSESSMENT DONE AT THIS TIME. PT IS A/O X1 NOTED TO BE SLEEPING AT THIS TIME IN BED. ABLE TO FOLLOW COMMANDS. NO ACUTE RESPIRATORY DISTRESS NOTED. VITAL SIGNS TAKEN AND ARE STABLE, PT ON ROOM AIR WITH OXYGEN SATURATION AT 98%. DENIES PAIN. NO SOB OR ACUTE RESPIRATORY DISTRESS NOTED. IV ACCESS TO RT FOREARM #22G, PATENT AND INTACT. UPON INSPECTION NOTED PT TO HAVE HEEL WOUND, DRY AND INTACT. SEE WOUND ASSESSMENT. PT ALSO HAS MULTIPLE SCABS ALLOVER TRUCK AND UPPER AND LOWER EXTREMITIES OF BODY, DRY AND HEALED. LUNG SOUNDS ARE CLEAR. BOWEL SOUNDS ARE ACTIVE. DISCUSSED WITH PT PLAN OF CARE, VERBALIZED UNDERSTANDING. CALL LIGHT PLACED WITHIN EASY REACH. WILL CONTINUE TO MONITOR PT.
--- NOTE | 2017-02-03 19:40 | NUR ---
APPLIED XEROFORM PER MD ORDERS TO RT HEEL AND THIS TIME, COVERAGE WITH COMPOSITE DRESSING.
[2017-02-03 20:00] VITALS: BP 127/90
--- NOTE | 2017-02-03 20:45 | NUR ---
PT LEFT AT THIS TIME ESCORTED OUT BY PRIMER TRANSPORTER VIA WHEELCHAIR. PT STABLE, NO SIGNS OF ACUTE DISTRESS NOTED.
== END 2017-02-03 20:45 | DRG 682 ==
LOC: MED 14:20 → MTU 16:53
PROVIDERS: ADMIT Family Medicine; ATTEND Family Medicine
DX: N17.0 Acute kidney failure with tubular necrosis (principal); G93.41 Metabolic encephalopathy; E87.1 Hypo-osmolality and hyponatremia; B37.49 Other urogenital candidiasis; I50.22 Chronic systolic (congestive) heart failure; I13.0 Hypertensive heart and chronic kidney disease with heart failure and stage 1 through stage 4 chronic kidney disease, or unspecified chronic kidney disease; I48.91 Unspecified atrial fibrillation; E86.0 Dehydration; E87.6 Hypokalemia; N18.9 Chronic kidney disease, unspecified; E11.65 Type 2 diabetes mellitus with hyperglycemia; E11.51 Type 2 diabetes mellitus with diabetic peripheral angiopathy without gangrene; J45.909 Unspecified asthma, uncomplicated; E78.5 Hyperlipidemia, unspecified; J44.9 Chronic obstructive pulmonary disease, unspecified; E66.9 Obesity, unspecified; Z60.2 Problems related to living alone; T50.2X5A Adverse effect of carbonic-anhydrase inhibitors, benzothiadiazides and other diuretics, initial encounter; Z79.82 Long term (current) use of aspirin; Z79.4 Long term (current) use of insulin; Z79.899 Other long term (current) drug therapy; I25.2 Old myocardial infarction; Z98.61 Coronary angioplasty status; Z68.27 Body mass index [BMI] 27.0-27.9, adult
CPT/HCPCS: 36415; 70450; 71010; 76770; 80048; 80053; 81001; 82040; 82140; 82150; 82575; 82948; 83036; 83605; 83690; 83735; 83880; 84100; 84300; 84439; 84443; 84484; 84550; 85025; 85610; 85730; 87040; 87081; 93005; 93880; 93925; 93970; 94640; 97110; 97116; 97140; 97530; 99285; J0696; J1450; J1815; J2001; J2060; J3480; J7030; J7060; J7620; J7626; Q0092